=== PATIENT | female | born 1960 | race African-American/Black ===

== ENCOUNTER → 2019-04-17 | Outpatient (CLI) | payer BC ==
--- NOTE | 2019-04-19 14:06 | PATH ---
[facility] [address] [address] PATHOLOGY RPT PROCEDURE Name: GLORIA SPENCER Baldev Room #: REG [facility].#: [id number] Admission: 04/17/19 Date of : 62 Discharge: Report #: [id number] Path Case #: [id number] [facility] Accession Number: [id number] . 01 Material submitted: . breast - LEFT BREAST CALCIFICATIONS. Modifiers: left, medial, inferior . 01 Clinical history: . Left breast calcifications . 02 Diagnosis: Breast, left breast medial inferior, stereotactic needle core biopsy: -INVASIVE WEEL DIFFERENTIATED DUCTAL ADENOCARCINOMA, LEA GRADE 1 MEASURING 3 MM IN GREATEST DIMENSION IN A SINGLE CORE. - EXTENSIVE DUCTAL CARCINOMA IN-SITU, CRIBRIFORM AND SOLID WITH INTERMEDIATE NUCLEAR GRADE - COARSE CALCIFICATIONS ASSOCIATED WITH INVASIVE AND IN-SITU CARCINOMA . Specimen type: Needle core biopsy Tumor site: Left breast medial inferior Tumor quantitation: 3 mm Histologic type: Invasive ductal carcinoma Histologic grade: [place] grade 1 Tubules, nuclei and mitoses: 3, 1 and 1 respectively LVSI: Not identified Microcalcifications: Present with invasive carcinoma and DCIS Markers: ER, SD, Her2/chavo and Ki-67 Block: A1 . . This case was prepared and proofread by Dr. Jena Hurtado, electronically released by Dr. Ruben Luther. [facility] [place] 04/19/2019 1317 Local . 02 Comment: Properly controlled p63 and smooth muscle heavy chain myosin are performed on block A3 and show loss of myoepithelial cells within the area of interest. . Findings were relayed to Katja Rodriguez at [facility] by Dr. Luther on 04/19/19. . Breast prognostic studies ordered on block A1. Results will be issued in an addendum. . Dr. Ruben Luther has seen this case and concurs with my diagnosis. . This case was prepared and proofread by Dr. Jena Hurtado, [place] [address] PATHOLOGY RPT PROCEDURE Name: GLORIA SPENCER [id number]: 04/17/19 Date of : 62 Discharge: Report #: [id number] Path Case #: [id number] electronically released by Dr. Ruben Luther. . 02 Electronically signed: . Aquilino Luther MD, Pathologist NPI- [id number] . 01 Gross description: . The specimen is received in formalin labeled "Spencer, Gloria, left". The specimen source is not listed on the container. The source is listed on the requisition as "breast, left, medial inferior". Received is a tissue cassette containing multiple needle cores of yellow-bowman fibrofatty tissue measuring 1.8 x 1.4 x 0.3 cm in aggregate dimensions. This tissue is transferred to cassette A1. Received outside the tissue cassette within the specimen container are multiple needle cores of yellow-bowman fibrofatty tissue measuring 2.3 x 1.8 x 0.8 cm in aggregate dimensions. This tissue is submitted entirely in cassettes A2 and A3. The cold ischemic time is three minutes. The total formalin fixation time is 12 hours and 7 minutes. (DAC; 04/17/2019) XDC/XDC 04/17/2019 1212 Local . 02 Pathologist provided ICD-10: C50.912, D05.12 . 02 CPT . 986678 Specimen Comment: A courtesy copy of this report has been sent to Specimen Comment: [phone], . Specimen Comment: Report sent to / DR HOFFMAN Performed at: [address], [place], [place] [id number] MD Saji Sorenson MD Phone: [phone] Performed at: [address] [id number] MD Jena Hurtado MD Phone: [phone]
== END | disposition home or self-care (01) ==
LOC: RAD 08:48
DX: R92.0 Mammographic microcalcification found on diagnostic imaging of breast (principal); C50.912 Malignant neoplasm of unspecified site of left female breast